=== PATIENT | female | born 1985 | race Caucasian/White ===

== ENCOUNTER 2023-06-02 09:03 | Emergency (ER) | payer MEDICAID ==
[~2023-06-02] VITALS: Ht 157 cm; Wt 102.9 kg
--- NOTE | 2023-06-02 09:42 | ED GU-Female ---
General Chief Complaint: OB < 20 WEEKS Stated Complaint: 18 WEEKS | LOSING AMNIOTIC FLUID Nursing Triage Note: Pt presents to ER with complaints of "leaking" clear vaginal fluid for the past couple days. Pt reports that she is 18 weeks preg. . Reports having ultrasound at approximately 10 weeks. Denies complaints of abdominal/pelvic cramping/pain. Denies complaints of vaginal bleeding Source: patient Exam Limitations: no limitations History of Present Illness Date Seen by Provider: Jun 02, 2023 Time Seen by Provider: 09:28 Initial Comments Patient is a 37-year-old female who presents to the emergency department with a concern for leakage of amniotic fluid. Patient is a G2, P1. Her last delivery was 10 years ago, for premature rupture of membranes. She is approximately 7 weeks and 6 days with an estimated due date of November 05, 2023. Her OB provider is Dr. Tai. She states she felt like she was leaking fluid since Monday. She woke up this morning with more fluid and called Dr. Tai's office, they advised her to come to the emergency department. Patient denies any foul-smelling vaginal discharge. No blood. She takes medications for high blood pressure. She is on vitamins. She also complains of an accompanying frontal headache that has been off and on for the last couple of weeks. She has not taken anything for the headache. Not nauseous. No fevers or chills. No dysuria, urgency or frequency. No diarrhea, black or bloody stools. Timing/Duration: other (4 days) Severity/Quality: moderate Location: vaginal Activities at Onset: none Prior Genitourinary Problems: none Associated Symptoms: other (headache) Allergies and Home Medications Allergies Coded Allergies: No Known Drug Allergies (Unverified , 06/02/23) Patient Home Medication List Home Medication List Reviewed: Yes Review of Systems Review of Systems Constitutional: see HPI EENTM: no symptoms reported Respiratory: no symptoms reported Cardiovascular: no symptoms reported Gastrointestinal: no symptoms reported Genitourinary: other (concern for amniotic fluid leakage) : Yes Expected Date of Delivery: Nov 05, 2023 Musculoskeletal: no symptoms reported Skin: no symptoms reported Psychiatric/Neurological: Headache Past Rzfxreh-Vccweb-Efniqj Hx Patient Social History Tobacco Use?: No Use of E-Cig and/or Vaping dev: No Substance use?: No Alcohol Use?: No Pt feels they are or have been: No Immunizations Up To Date Influenza Vaccine Up-to-Date: No; Not Current First/Initial COVID19 Vaccinat: vaccinated Past Medical History Surgery/Hospitalization HX: HTN Last Menstrual Period: Jan 31, 2023 Physical Exam Vital Signs Vital Signs - First Documented 06/02/23 09:11 Temp 36.8 Pulse 69 Resp 18 B/P (MAP) 131/71 (91) Pulse Ox 98 O2 Delivery Room Air Capillary Refill : Less Than 3 Seconds Height, Weight, BMI Height: '" Weight: lbs. oz. kg; 41.00 BMI Method: General Appearance: WD/WN, no apparent distress, obese HEENT: PERRL/EOMI Neck: full range of motion Cardiovascular: regular rate, rhythm Respiratory: lungs clear, normal breath sounds, no respiratory distress, no accessory muscle use Gastrointestinal: normal bowel sounds, non tender, soft Extremities: normal range of motion, non-tender, normal inspection, no pedal edema Neurologic/Psychiatric: alert, normal mood/affect, oriented x 3 Skin: normal color, warm/dry Progress/Results/Core Measures Suspected Sepsis SIRS Temperature: Pulse: 69 Respiratory Rate: 18 Blood Pressure 131 /71 Mean: 91 Results/Orders Lab Results Laboratory Tests Test 06/02/23 09:29 06/02/23 09:55 Range/Units Urine Color YELLOW Urine Clarity CLEAR Urine pH 6.5 5-9 Urine Specific [place] <=1.005 1.016-1.022 Urine Protein NEGATIVE NEGATIVE Urine Glucose (UA) NEGATIVE NEGATIVE Urine Ketones NEGATIVE NEGATIVE Urine Nitrite NEGATIVE NEGATIVE Urine Bilirubin NEGATIVE NEGATIVE Urine Urobilinogen 0.2 < = 1.0 MG/DL Urine Leukocyte Esterase NEGATIVE NEGATIVE Urine RBC (Auto) NEGATIVE NEGATIVE Urine RBC NONE /HPF Urine WBC NONE /HPF Urine Squamous Epithelial Cells 0-2 /HPF Urine Crystals NONE /LPF Urine Bacteria TRACE /HPF Urine Casts NONE /LPF Urine Mucus NEGATIVE /LPF Urine Culture Indicated NO Glucometer 97 70-110 MG/DL My Orders Orders - PASCUAL CURIEL MD Ua Culture If Indicated (06/02/23 09:38) Accucheck Stat ONCE (06/02/23 09:38) Acetaminophen Tablet (Acetaminophen Ta (06/02/23 11:00) Acetaminophen Tablet (Acetaminophen Ta (06/02/23 10:47) Wet Prep (06/02/23 11:20) Medications Given in ED Current Medications Medications Dose Ordered Sig/Veronica Route Start Time Stop Time Status Last Admin Dose Admin Acetaminophen 1,000 mg ONCE ONCE PO 06/02/23 11:00 06/02/23 11:01 DC 06/02/23 10:49 1,000 MG Vital Signs/I&O 06/02/23 09:11 Temp 36.8 Pulse 69 Resp 18 B/P (MAP) 131/71 (91) Pulse Ox 98 O2 Delivery Room Air Capillary Refill : Less Than 3 Seconds Blood Pressure Mean: 91 Progress Note : Time: 11:20 Departure Communication (Admissions) Time/Spoke to Consulting Phy: : discussed with Dr Tai; would like wet prep done as well. Will see on Monday in office Impression Primary Impression: 18 weeks gestation of Disposition: HOME, SELF-CARE Condition: Stable Departure-Patient Inst. Decision time for Depature: 11:38 Referrals: DONTRELL TAI DO (PCP/Family) Primary Care Physician Patient Instructions: - The Fifth Month Add. Discharge Instructions: Monitor your symptoms for any worsening - especially any bleeding. If this occurs please return to the Emergency Department for re-evaluation. Please keep your follow up with Dr Tai on Monday, If there is any need for treatment from the swab obtained today, I will let you know and call in antibiotic treatment for you. Return to the Emergency Department for any new, concerning or emergent complaints. Work/School Note: Work Release Form Date Seen in the Emergency Department: Jun 02, 2023 Return to Work: Jun 03, 2023 Copy Copies To 1: DONTRELL TAI KATHRYN M MD Jun 02, 2023 09:42
[2023-06-02 09:48] LABS: BILIRUBIN,URINE NEGATIVE (NEGATIVE); CLARITY,URINE CLEAR; COLOR,URINE YELLOW; GLUCOSE, URINE (UA) NEGATIVE (NEGATIVE); KETONES,URINE NEGATIVE (NEGATIVE); LEUKOCYTE ESTERASE ,URINE NEGATIVE (NEGATIVE); NITRITE,URINE NEGATIVE (NEGATIVE); PH,URINE 6.5 (5-9); PROTEIN,URINE NEGATIVE (NEGATIVE)
[2023-06-02 09:54] LABS: BACTERIA,URINE TRACE /HPF; SQUAMOUS EPITHELIAL CELL,UR 0-2 /HPF
[2023-06-02] MEDS ORDERED: ACETAMINOPHEN 500 MG TABLET ONE (10:47)
[2023-06-02] MEDS ORDERED: ACETAMINOPHEN 500 MG TABLET PO ONE (11:00)
[2023-06-02 12:17] VITALS: BP 131/74
== END 2023-06-02 12:15 | disposition home or self-care (01) ==
LOC: ER 09:08
DX: O26.892 Other specified pregnancy related conditions, second trimester (principal); O16.2 Unspecified maternal hypertension, second trimester; Z3A.18 18 weeks gestation of pregnancy; Z28.311 Partially vaccinated for COVID-19; Z79.899 Other long term (current) drug therapy
CPT/HCPCS: 81000; 82947; 87210

== ENCOUNTER → 2023-06-19 | Outpatient (CLI) | payer MEDICAID ==
--- NOTE | 2023-06-19 17:26 | Diagnostic Imaging Report ---
INDICATION: Anatomy survey. Supervision of normal . TECHNIQUE: Multiple real-time grayscale images were obtained over the gravid uterus. COMPARISON: None FINDINGS: A single live intrauterine gestation is visualized in cephalic presentation. heart tones measure 140 BPM. The placenta is anterior and not low lying. The amniotic fluid is normal measuring 10.2 cm. The cervix is closed and measures 4.3 cm in length. The brain, stomach, bladder, and kidneys are visualized and have a normal appearance. The four-chamber heart, outflow tracts, spine, three-vessel cord, and cord insertion are not well seen due to position and poor sonographic windows. Views of the adnexa are unremarkable. Biometrical measurements are as follows: Biparietal 4.45 cm, age 19 weeks 4 days. Head circumference 17.08 cm, age 19 weeks 5 days. Abdominal circumference 15.94 cm, age 21 weeks 1 days. Femur length 3.49 cm, age 21 weeks 1 days. Sonographic estimate age: 20 weeks 3 days. Sonographic estimated date of delivery: 11/03/2023. Estimated Weight: 381 gm (+/- 56 gm). LMP percentile: 83%. heart rate: 140 beats per minute. number: 1 of 1. IMPRESSION: 1. Single live intrauterine gestation measuring 20 weeks 3 days with an estimated due date of 11/03/2023. These are within range with the clinical dates. 2. The four-chamber heart, outflow tracts, three-vessel cord, spine, and cord insertion are not well seen due to position. The remainder of the anatomy is visualized and has a normal appearance. Recommend follow-up as indicated. Dictated by: Dictated on workstation # [id number]
== END ==
LOC: RAD 11:27
PROVIDERS: ATTEND Nurse Practitioner Women's Health
DX: Z34.82 Encounter for supervision of other normal pregnancy, second trimester (principal); Z3A.20 20 weeks gestation of pregnancy
CPT/HCPCS: 76805

== ENCOUNTER → 2023-07-31 | Outpatient (CLI) | payer MEDICAID ==
--- NOTE | 2023-07-31 13:00 | Diagnostic Imaging Report ---
INDICATION: Gestational hypertension and maternal obesity. TECHNIQUE: Multiple real-time grayscale images were obtained over the gravid uterus. COMPARISON: 06/19/2023. FINDINGS: There is a single live fetus in a cephalic presentation. heart rate was recorded at 152 bpm. Placenta is anterior. No previa is detected. Amniotic fluid index is 15.67 m. Cervical length is 6.0 cm. No gross abnormalities are seen although heart and spine views are somewhat limited. Biometrical measurements are as follows: Biparietal 6.62 cm, age 26 weeks 5 days. Head circumference 25.14 cm, age 27 weeks 3 days. Abdominal circumference 21.91 cm, age 26 weeks 3 days. Femur length 4.92 cm, age 26 weeks 4 days. Sonographic estimate age: 26 weeks 6 days. Sonographic estimated date of delivery: 10/31/2023. Estimated Weight: 951 gm (+/- 139 gm). LMP percentile: 56%. heart rate: 152 beats per minute. number: 1 of 1. IMPRESSION: Single live IUP approximately 27 weeks gestational age demonstrating normal interval growth when compared with prior exam. Dictated by: Dictated on workstation # [id number]
== END ==
LOC: RAD 12:00
PROVIDERS: ATTEND Obstetrics & Gynecology
DX: O13.9 Gestational [pregnancy-induced] hypertension without significant proteinuria, unspecified trimester (principal)
CPT/HCPCS: 76805

== ENCOUNTER → 2023-08-30 | Outpatient (CLI) | payer MEDICAID ==
--- NOTE | 2023-08-30 12:54 | Diagnostic Imaging Report ---
INDICATION: Gestational hypertension and maternal obesity. TECHNIQUE: Multiple real-time grayscale images were obtained over the gravid uterus. COMPARISON: 07/31/2023. FINDINGS: There is a single live fetus in a breech presentation. heart rate was recorded at 138 BPM. Placenta is anterior. No previa is detected. Amniotic fluid index is 9.8 cm. Cervical length is 7.7 cm. No complicating features are detected. Biometrical measurements are as follows: Biparietal 7.89 cm, age 31 weeks 5 days. Head circumference 29.20 cm, age 32 weeks 2 days. Abdominal circumference 26.83 cm, age 31 weeks 0 days. Femur length 6.02 cm, age 31 weeks 3 days. Sonographic estimate age: 31 weeks 5 days. Sonographic estimated date of delivery: 10/27/2023. Estimated Weight: 1727 gm (+/- 252 gm). LMP percentile: 66%. heart rate: 138 beats per minute. number: 1 of 1. IMPRESSION: Single live IUP measuring 31-32 weeks gestational age showing normal interval growth when compared with prior exam. Dictated by: Dictated on workstation # [id number]
== END ==
LOC: RAD 09:04
PROVIDERS: ATTEND Obstetrics & Gynecology
DX: O13.3 Gestational [pregnancy-induced] hypertension without significant proteinuria, third trimester (principal); Z3A.31 31 weeks gestation of pregnancy
CPT/HCPCS: 76805

== ENCOUNTER → 2023-10-09 | Outpatient (CLI) | payer MEDICAID ==
--- NOTE | 2023-10-09 10:48 | Diagnostic Imaging Report ---
INDICATION: Hypertension and TECHNIQUE: Multiple real-time grayscale images were obtained over the gravid uterus. COMPARISON: 08/30/2023 FINDINGS: There is a single live intrauterine in cephalic presentation. The cervix measures approximately 3.87 cm in length. Placenta is anterior position and there is no previa. The amniotic fluid index is 6.97, which is low normal. Biometrical measurements are as follows: Biparietal 9.04 cm, age 36 weeks 5 days. Head circumference 33.41 cm, age 38 weeks 2 days. Abdominal circumference 31.68 cm, age 35 weeks 5 days. Femur length 6.97 cm, age 35 weeks 6 days. Sonographic estimate age: 36 weeks 5 days. Sonographic estimated date of delivery: 11/01/2023. Estimated Weight: 2830 gm (+/- 413 gm). LMP percentile: 48%. heart rate: 152 beats per minute. number: 1 of 1. IMPRESSION: 1. Single live intrauterine is in cephalic presentation. 2. Appropriate growth since prior ultrasound. Dictated by: Dictated on workstation # [id number]
== END ==
LOC: RAD 08:30
PROVIDERS: ATTEND Obstetrics & Gynecology
DX: O16.3 Unspecified maternal hypertension, third trimester (principal); Z3A.36 36 weeks gestation of pregnancy
CPT/HCPCS: 76805

== ENCOUNTER → 2023-10-13 | Outpatient (CLI) | payer MEDICAID ==
[~2023-10-13] VITALS: Ht 157.5 cm; Wt 109.2 kg
[~2023-10-13] MED LIST: ASPI-999 PO; LABE1PLA IV
== END | disposition home or self-care (01) ==
LOC: PREOP 05:32
PROVIDERS: ATTEND Obstetrics & Gynecology
DX: Z01.818 Encounter for other preprocedural examination (principal)